=== PATIENT | female | born 1950 | race Asian ===

== ENCOUNTER → 2022-09-11 | Outpatient (CLI) | payer MEDICARE, OTHER ==
[~2022-09-11] VITALS: Ht 167.6 cm; Wt 70.8 kg
[~2022-09-11] MED LIST: AMLO-258 PO; ATOR10TA PO; EMPA10TA3 PO; LOSA-382 PO
[2022-09-11 13:43] VITALS: BP 133/94
== END | disposition home or self-care (01) ==
LOC: SRCNTR 13:25
PROVIDERS: ATTEND Hospitalist
DX: E11.65 Type 2 diabetes mellitus with hyperglycemia (principal); I10 Essential (primary) hypertension; E78.5 Hyperlipidemia, unspecified; J30.2 Other seasonal allergic rhinitis
CPT/HCPCS: G0463; Z7500

== ENCOUNTER → 2022-10-31 | Outpatient (CLI) | payer MEDICARE, OTHER ==
[2022-10-31 11:16] LABS: BASOPHILS % (AUTO) 0.6 % (0.0-2.0); EOSINOPHILS % (AUTO) 3.5 % (1.0-6.0); HEMATOCRIT 38.6 % (36-46); HEMOGLOBIN 12.9 g/dL (12.0-16.0); MEAN CORPUSCULAR HEMOGLOBIN 29.6 pg (26.0-34.0); MEAN CORPUSCULAR HGB CONC 33.5 G/dL (31.0-37.0); MEAN CORPUSCULAR VOLUME 88 fL (80-100); MONOCYTES # (AUTO) 0.4 K/uL (0.1-1.0); MONOCYTES % (AUTO) 3.5 % (2.0-9.0); NEUTROPHILS # (AUTO) 7.3 K/uL (1.8-7.7); NEUTROPHILS % (AUTO) 72.4 % (40.0-70.0); PLATELET COUNT (AUTO) 423 K/uL (150-450); RED BLOOD CELL COUNT(AUTO) 4.38 MIL/uL (4.00-5.20)
[2022-10-31 11:51] LABS: HEMOGLOBIN A1C 13.1 % (3.8-5.6)
[2022-10-31 12:17] LABS: BILIRUBIN,TOTAL 0.4 mg/dL (0.1-1.0); CALCIUM, TOTAL 9.4 mg/dL (8.8-10.5); CREATININE 2.3 mg/dL (0.60-1.30); THYROID STIMULATING HORMONE 3.13 uIU/mL (0.36-3.74); TOTAL PROTEIN, SERUM 8.1 g/dL (6.4-8.2)
== END | disposition home or self-care (01) ==
LOC: LABMN 10:52
PROVIDERS: ATTEND Hospitalist
DX: I10 Essential (primary) hypertension (principal); E11.9 Type 2 diabetes mellitus without complications
CPT/HCPCS: 80053; 80061; 83036; 84443; 85025

== ENCOUNTER → 2022-11-08 | Outpatient (CLI) | payer MEDICARE, OTHER ==
[~2022-11-08] VITALS: Ht 167.6 cm; Wt 72.0 kg
[~2022-11-08] MED LIST changes: +ATOR20TA PO; +GLYB5TAB9 PO
[2022-11-08 11:46] VITALS: BP 148/53; PULSE 82; RESP 20; TEMP 98.7; O2SAT 99
== END | disposition home or self-care (01) ==
LOC: SRCNTR 11:11
PROVIDERS: ATTEND Hospitalist
DX: I10 Essential (primary) hypertension (principal); E11.9 Type 2 diabetes mellitus without complications; E78.5 Hyperlipidemia, unspecified; J30.2 Other seasonal allergic rhinitis; G50.0 Trigeminal neuralgia
CPT/HCPCS: G0463; Z7500

== ENCOUNTER → 2023-03-28 | Outpatient (CLI) | payer MEDICARE, OTHER ==
[~2023-03-28] VITALS: Ht 167.6 cm; Wt 72.5 kg
[~2023-03-28] MED LIST changes: +CETI5TAB14 PO; +INFLUENZA VIRUS VACCINE QVS 2023-24 (6MO+)/PF 60 MCG/0.5 ML SYRINGE IM. ONE; +ZOLP-280 PO
[2023-03-28 12:01] VITALS: BP 149/82; PULSE 78; RESP 20; O2SAT 98
== END | disposition home or self-care (01) ==
LOC: SRCNTR 11:30
PROVIDERS: ATTEND Hospitalist
DX: G47.00 Insomnia, unspecified (principal); Z23 Encounter for immunization; I10 Essential (primary) hypertension; E78.5 Hyperlipidemia, unspecified; E11.9 Type 2 diabetes mellitus without complications
CPT/HCPCS: 90686; 90471; G0463

== ENCOUNTER → 2024-01-14 | Outpatient (CLI) | payer MEDICARE, OTHER ==
[~2024-01-14] VITALS: Ht 167.6 cm; Wt 66.0 kg
[~2024-01-14] MED LIST changes: -ATOR20TA PO; +ATOR40TA28 PO; +CETI-450 PO; -CETI5TAB14 PO; +DULA1.5P SQ; -INFLUENZA VIRUS VACCINE QVS 2023-24 (6MO+)/PF 60 MCG/0.5 ML SYRINGE IM. ONE; +TELM1TAB42 PO; +[UNRECOGNIZED DRUG - CODE] MC
[2024-01-14 13:28] VITALS: BP 129/66; PULSE 79; RESP 21; TEMP 98.3; O2SAT 99
== END | disposition home or self-care (01) ==
LOC: SRCNTR 12:25
PROVIDERS: ATTEND Hospitalist
DX: T78.40XA Allergy, unspecified, initial encounter (principal); I12.9 Hypertensive chronic kidney disease with stage 1 through stage 4 chronic kidney disease, or unspecified chronic kidney disease; E11.22 Type 2 diabetes mellitus with diabetic chronic kidney disease; N18.9 Chronic kidney disease, unspecified; R42 Dizziness and giddiness; E78.5 Hyperlipidemia, unspecified; H04.129 Dry eye syndrome of unspecified lacrimal gland; Z98.890 Other specified postprocedural states; Z79.899 Other long term (current) drug therapy; X58.XXXA Exposure to other specified factors, initial encounter
CPT/HCPCS: G0463; Z7500